=== PATIENT | female | born 1975 | race Caucasian/White ===

== ENCOUNTER 2018-06-17 06:31 | Inpatient (IN) ==
[~2018-06-17 06:31] MED LIST: ANCEF 1 GRAM IV PREMIX* 1 G/50 ML BAG IV ONE; ANCEF VIAL 1 GRAM 1 G in NS 50 ML IV + SPIKE MINIBAG* 50 ML IV PRN; FENTANYL INJ 250 mcg ONE
[2018-06-17] MEDS: D5 1/2 NS 1000 ML 1,000 ML IV SCH ×4 (06:55→19:11)
[2018-06-17 07:06] VITALS: BMI 21.2
[2018-06-17] MEDS ORDERED: METHYLENE BLUE 1% INJ ONE (08:19)
[2018-06-17] MEDS ORDERED: LR 1000 ML IV 1,000 ML IV ONE (08:47)
[2018-06-17] MEDS ORDERED: XYLOCAINE 1 % (PLAIN) ONE (08:57)
[2018-06-17] MEDS ORDERED: DIPRIVAN VIAL ONE (08:57)
[2018-06-17] MEDS ORDERED: NEOSTIGMINE INJ ONE (08:57)
[2018-06-17] MEDS ORDERED: ZOFRAN INJ 4 MG VIAL ONE (08:57)
[2018-06-17] MEDS ORDERED: NORCURON INJ 10 MG VIAL ONE (08:57)
[2018-06-17] MEDS ORDERED: SUPRANE IN ONE (08:57)
[2018-06-17] MEDS ORDERED: ROBINUL ONE (08:57)
[2018-06-17] MEDS ORDERED: VERSED ONE (08:57)
[2018-06-17] MEDS ORDERED: QUELICIN (OR ANECTINE) ONE (08:57)
[2018-06-17] MEDS: DILAUDID INJ ONE ×4 (09:14→14:31)
[2018-06-17] MEDS ORDERED: DILAUDID INJ IVP PRN (09:17)
[2018-06-17] MEDS ORDERED: REGLAN INJ 10 MG VIAL IVP PRN (09:17)
[2018-06-17] MEDS ORDERED: ZOFRAN INJ 4 MG VIAL IVP PRN (09:17)
[2018-06-17] MEDS ORDERED: BENADRYL INJ 50 MG VIAL IVP PRN ×2 (09:17→10:05)
[2018-06-17] MEDS: PHENERGAN INJ 25 MG IVP PRN (09:25)
[2018-06-17] MEDS ORDERED: D5 1/2 NS 1000 ML 1,000 ML IV SCH (10:05)
[2018-06-17] MEDS ORDERED: TORADOL 30 MG VIAL IVP PRN (10:05)
[2018-06-17] MEDS: MORPHINE SULFATE PCA 30 MG IVP PRN ×2 (10:35→23:30)
[2018-06-17] MEDS: ZOFRAN INJ 4 MG VIAL IVP PRN ×2 (11:04→19:11)
[2018-06-18] MEDS: D5 1/2 NS 1000 ML 1,000 ML IV SCH ×6 (00:14→22:22)
[2018-06-18 05:18] LABS: BASOPHILS % (AUTO) 0.1 % (0.2-1.0); EOSINOPHILS # (AUTO) 0.2 x10^3/uL (0.0-0.2); HEMATOCRIT 26.1 % (36.0-47.0); HEMOGLOBIN 8.8 g/dL (12.0-16.0); LYMPHOCYTES # (AUTO) 1.1 X10^3/uL (1.3-2.9); LYMPHOCYTES % (AUTO) 5.1 % (21.0-51.0); MEAN CORPUSCULAR HEMOGLOBIN 29.4 pg (27.0-34.0); MEAN CORPUSCULAR HGB CONC 33.7 g/dL (33.0-35.0); MEAN CORPUSCULAR VOLUME 87.4 fL (80.0-100.0); MEAN PLATELET VOLUME 10.2 fL (7.4-11.0); MONOCYTES % (AUTO) 4.6 % (0.0-13.0); NEUTROPHILS # (AUTO) 19.2 x10^3/uL (2.2-4.8); NEUTROPHILS % (AUTO) 89.2 % (42.0-75.0); PLATELET COUNT 182 X10^3/uL (150.0-450.0); RED BLOOD COUNT 2.98 X10^6/uL (3.5-5.4); WHITE BLOOD COUNT 21.5 X10^3/uL (3.6-10.0)
[2018-06-18 05:25] LABS: BLOOD UREA NITROGEN 4 mg/dL (7-18); CARBON DIOXIDE 27.3 mmol/L (21-32); CHLORIDE 103 mmol/L (98-107); COR NA(FOR HYPERGLY) 137 mmol/L (136-145); CREATININE 0.68 mg/dL (0.55-1.02); SODIUM 136 mmol/L (136-145); eGFR NON BLACK RACES > 60 (>60)
[2018-06-18 05:43] LABS: BAND NEUTROPHILS % 6 % (0-10); PLATELET MORPHOLOGY COMMENT NORMAL (NORMAL)
[2018-06-18] MEDS ORDERED: MOTRIN TAB 800 MG PO PRN (07:32)
[2018-06-18] MEDS ORDERED: ULTRAM PO PRN (07:32)
[2018-06-18] MEDS: ANCEF VIAL 1 GRAM 1 G in NS 100 ML IV + SPIKE MINIBAG* 100 ML IV SCH ×3 (08:19→22:15)
[2018-06-18] MEDS: COLACE CAP 100 MG PO SCH ×2 (10:12→20:30)
[2018-06-18] MEDS: ZOFRAN INJ 4 MG VIAL IVP PRN (10:16)
[2018-06-18] MEDS: ESTRACE PO SCH (12:00)
[2018-06-18] MEDS: PHENERGAN INJ 25 MG IVP PRN (14:00)
[2018-06-18] MEDS: BACTROBAN TOPICAL OINT TOP SCH ×2 (14:00→22:15)
[2018-06-18] MEDS: FERROUS GLUCONATE PO SCH (17:19)
[2018-06-19] MEDS: BACTROBAN TOPICAL OINT TOP SCH (05:41)
[2018-06-19] MEDS: ANCEF VIAL 1 GRAM 1 G in NS 100 ML IV + SPIKE MINIBAG* 100 ML IV SCH (05:41)
[2018-06-19] MEDS: FERROUS GLUCONATE PO SCH (06:08)
[2018-06-19] MEDS: D5 1/2 NS 1000 ML 1,000 ML IV SCH (06:09)
[2018-06-19] MEDS: ESTRACE PO SCH (08:37)
[2018-06-19] MEDS: COLACE CAP 100 MG PO SCH (08:37)
[2018-06-19 08:39] VITALS: BP 103/58
== END 2018-06-19 09:33 | disposition home or self-care (01) | DRG 743 ==
LOC: OBS 06:31 → MED/SURG 13:59
PROVIDERS: ADMIT Specialist; ATTEND Specialist
DX: N94.4 Primary dysmenorrhea; N80.8 Other endometriosis; D25.2 Subserosal leiomyoma of uterus; N94.19 Other specified dyspareunia; N92.1 Excessive and frequent menstruation with irregular cycle; R10.2 Pelvic and perineal pain
CPT/HCPCS: 36415; 80048; 85025; 93010; 94760; A4216; A4222; J0330; J0690; J1170; J2250; J2271; J2405; J2550; J2704; J2710; J3010; J3490; J7050; J7120; Q9968; S5010